=== PATIENT | female | born 1995 | race Caucasian/White ===

== ENCOUNTER 2016-12-31 15:12 | Inpatient (IN) | payer OTHER ==
[~2016-12-31] VITALS: Ht 180.3 cm; Wt 168.0 kg
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
--- NOTE | ~2016-12-31 | PUL ---
PATIENT'S NAME: HARRIET ROD [facility] AGE: 21 Y [address] ROOM: [address] [address] LOCATION: [facility]ICU ADMIT DATE: 12/31/2016 Pulmonary DISCHARGE DATE: 01/04/2017 FAMILY PHYSICIAN: Physician, Unknown ATTENDING PHYSICIAN: Italia Banegas NAME OF PROCEDURE: Overnight Pulse Oximetry DATE OF PROCEDURE: January 03 to January 04, 2017 REASON FOR EXAM: Nocturnal hypoxemia RESULTS: The test was performed on room air. The recording time was 9 hours 6 minutes and 4 seconds, with a total valid sampling time of 9 hours, 5 minutes and 52 seconds. The highest pulse was 120, lowest pulse was77, with a mean pulse of 97. The highest SpO2 was 99%, lowest SpO2 was 71%, with a mean SpO2 of 91.1%. The patient spent 1 hour 29 minutes and 48 seconds with SpO2 less than 89%, representing 16.5% of the total sleep time. The desaturation event index was slightly elevated at 6.4. PHYSICIAN INTERPRETATION: The patient has evidence of significant nocturnal hypoxia and would qualify for supplemental oxygen as per Medicare criteria. However because of her significant nocturnal hypoxia with an elevated desaturation event index a sleep study is suggested at this time. MD ISABEL GAUTHIER/olga /[id number] dtt: 01/07/17 1628 , MADALYN MONTGOMERY dtd: 01/07/17 1440
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
[2016-12-31 15:28] LABS: BASOPHIL # 0.1 K/uL (0.0-0.2); BASOPHIL % 0.3 %; EOSINOPHIL # 0.1 K/uL (0.0-0.5); EOSINOPHIL % 0.4 %; HEMATOCRIT 40.4 % (33.0-46.0); HEMOGLOBIN 14.1 g/dL (11.0-15.0); IMMATURE GRANULOCYTE # 0.1 K/uL (0.0-0.3); IMMATURE GRANULOCYTE % 0.6 %; LYMPHOCYTE # 3.9 K/uL (0.8-4.0); LYMPHOCYTE % 27.1 %; MCH 30.5 pg (27.0-34.0); MCHC 34.9 gm/dL (32.0-36.5); MCV 87.4 fl (83.0-98.0); MONOCYTE % 7.2 %; MPV 9.3 fl (9.4-12.4); NEUTROPHIL # (ANC) 9.3 K/uL (1.8-7.8); NEUTROPHIL % 64.4 %; NRBC % 0 /100WBC (0-0.00); PLATELET COUNT 338 K/uL (150-450); RBC 4.62 M/uL (3.50-5.00); RDW-CV 12.1 % (11.9-14.6); WBC 14.4 K/uL (4.0-11.0)
[2016-12-31 15:37] LABS: INR - (THERAPEUTIC) 0.95 (0.92-1.07); PTT 26 SECONDS (25-32)
[2016-12-31 15:42] LABS: ALBUMIN 3.7 gm/dL (3.5-5.0); BLOOD UREA NITROGEN 10 mg/dL (6-24); CALCIUM 8.6 mg/dL (8.5-10.5); CHLORIDE 107 mMol/L (96-110); CO2 25 mMol/L (22-32); CREATININE 0.9 mg/dL (0.5-1.1); ESTIMATED GFR (MDRD EQUATION) > 60; PHOSPHORUS 2.3 mg/dL (2.5-4.9); SODIUM 139 mMol/L (135-145)
[2016-12-31 16:33] LABS: BILIRUBIN URINE NEGATIVE (NEGATIVE); BLOOD URINE 50 /UL (NEGATIVE); COLOR URINE YELLOW (YELLOW); GLUCOSE URINE NEGATIVE (NEGATIVE); KETONE URINE NEGATIVE (NEGATIVE); LEUKOCYTES URINE NEGATIVE /UL (NEGATIVE); NITRITE URINE NEGATIVE (NEGATIVE); PROTEIN URINE 15 mg/dL (NEGATIVE); TURBIDITY URINE CLEAR (CLEAR); UROBILINOGEN URINE NORMAL (NORMAL)
[2016-12-31 17:13] LABS: BACTERIA URINE FEW (NEGATIVE); WBC URINE NEGATIVE #/HPF (NEGATIVE)
[2017-01-01] MEDS ORDERED: GLUCOPHAGE500 MG PO (01:31)
[2017-01-02 05:27] LABS: BASOPHIL % 0.2 %; EOSINOPHIL # 0.1 K/uL (0.0-0.5); EOSINOPHIL % 1.5 %; HEMATOCRIT 34.7 % (33.0-46.0); HEMOGLOBIN 11.6 g/dL (11.0-15.0); IMMATURE GRANULOCYTE % 0.2 %; LYMPHOCYTE # 3.1 K/uL (0.8-4.0); LYMPHOCYTE % 34.4 %; MCH 30.9 pg (27.0-34.0); MCHC 33.4 gm/dL (32.0-36.5); MONOCYTE # 0.9 K/uL (0.0-1.0); MONOCYTE % 10.4 %; MPV 9.6 fl (9.4-12.4); NEUTROPHIL # (ANC) 4.8 K/uL (1.8-7.8); NEUTROPHIL % 53.3 %; NRBC % 0 /100WBC (0-0.00); RBC 3.76 M/uL (3.50-5.00); RDW-CV 12.3 % (11.9-14.6); WBC 9.1 K/uL (4.0-11.0)
[2017-01-02 05:32] LABS: MCV 92.3 fl (83.0-98.0); PLATELET COUNT 224 K/uL (150-450)
[2017-01-04] MEDS ORDERED: COLACE100 MG PO (10:41)
[2017-01-04] MEDS ORDERED: LOVENOX 4040 MG/0.4 SUB-Q (10:42)
[2017-01-04] MEDS ORDERED: NEURONTIN300 MG PO (10:42)
[2017-01-04] MEDS ORDERED: GLUCOPHAGE500 MG PO (10:43)
[2017-01-04] MEDS ORDERED: PERCOCET [ROXIC1 TAB PO (10:44)
[2017-02-05] MEDS ORDERED: PERCOCET 5-3251 EACH PO (14:33)
[2017-02-05] MEDS ORDERED: CYCLOBENZAPRINE5 MG PO (14:34)
== END 2017-01-04 13:42 | disposition disaster alternative care site (69) | DRG 493 ==
LOC: GACC 15:12 → GICU 18:20
PROVIDERS: Emergency Medicine; Orthopaedic Surgery; ADMIT Internal Medicine
PROC: 0QSG35Z Reposition Right Tibia with External Fixation Device, Percutaneous Approach (ICD-10-PCS; principal; 2016-12-31)
DX: S82.871A Displaced pilon fracture of right tibia, initial encounter for closed fracture (principal); Z68.43 Body mass index [BMI] 50.0-59.9, adult; E28.2 Polycystic ovarian syndrome; E66.01 Morbid (severe) obesity due to excess calories; F43.20 Adjustment disorder, unspecified; S14.3XXA Injury of brachial plexus, initial encounter
CPT/HCPCS: G0390; G0480; J1170; J1650; J2175; J2405; J3010; J3360; J3480; J7030; Q9967

== ENCOUNTER → 2016-12-31 | Outpatient (CLI) | payer OTHER ==
[~2016-12-31] MED LIST: COLACE100 MG PO; CYCLOBENZAPRINE5 MG PO; DILAUDID 2MG(HYD2 MG PO; GLUCOPHAGE500 MG PO; LOVENOX 4040 MG/0.4 SUB-Q; NEURONTIN300 MG PO; NORCO 5-325 TA1 EACH PO; PERCOCET 5-3251 EACH PO; PERCOCET [ROXIC1 TAB PO; TYLENOL EXTRA500 MG PO
== END | disposition disaster alternative care site (69) ==
LOC: GAMB 14:28
DX: M79.601 Pain in right arm (principal); M25.571 Pain in right ankle and joints of right foot; I95.9 Hypotension, unspecified; R58 Hemorrhage, not elsewhere classified; R00.0 Tachycardia, unspecified; Z79.84 Long term (current) use of oral hypoglycemic drugs; Z88.0 Allergy status to penicillin; Z88.1 Allergy status to other antibiotic agents; V49.3XXA Car occupant (driver) (passenger) injured in unspecified nontraffic accident, initial encounter
CPT/HCPCS: A0425; A0427; J3010; J7030

== ENCOUNTER → 2017-01-25 | Outpatient (CLI) | payer OTHER | END | disposition disaster alternative care site (69) | LOC: GRAD 12:00 | DX: S82.301D Unspecified fracture of lower end of right tibia, subsequent encounter for closed fracture with routine healing (principal); S13.8XXD Sprain of joints and ligaments of other parts of neck, subsequent encounter; X58.XXXD Exposure to other specified factors, subsequent encounter ==

== ENCOUNTER → 2017-01-26 | Outpatient (CLI) | payer OTHER ==
--- NOTE | ~2017-01-26 | ENPV ---
Vascular Lower Extremities DVT Study Procedure Demographics Patient Name HARRIET ROD Date of Study 01/26/2017 Patient Number [id number] Gender Female Date of 1995 Age 21 Visit Number [id number] Height Accession Number [id number] Weight Room Number BSA BMI Referring Renaldo Savage MD Interpreting Tad Domingo MD Physician Physician Physician Ordering Physician Renaldo Savage Table Cut Off Saw Operator MD Leak Detector Bryan Whyte BS, RT Conclusions Summary No evidence of deep vein thrombosis or superficial thrombophlebitis in the lower extremities bilaterally . Procedure Type of Study: Veins:Lower Extremities DVT Study, Lower Extremity Right. Indications for Study:Swelling of Limb. Patient Status:Routine. Study Location:Vascular Lab. Technical Quality:Adequate visualization. Velocities are measured in cm/s ; Diameters are measured in cm Right Lower Extremities DVT Study Measurements Right 2D and Doppler Measurements + + + + +------+------+ + !Location !Visualized!Compressibility!Thrombosis!Signal!Reflux!Reflux ! ! ! ! ! ! ! !(sec) ! + + + + +------+------+ + !GSV Thigh !Yes !Yes !None !Phasic!No ! ! + + + + +------+------+ + !Common !Yes !Yes !None !Phasic!No ! ! !Femoral ! ! ! ! ! ! ! + + + + +------+------+ + !Prox !Yes !Yes !None !Phasic!No ! ! !Femoral ! ! ! ! ! ! ! + + + + +------+------+ + !Mid Femoral!Yes !Yes !None !Phasic!No ! ! + + + + +------+------+ + !Dist !Yes !Yes !None !Phasic!No ! ! !Femoral ! ! ! ! ! ! ! + + + + +------+------+ + !Popliteal !Yes !Yes !None !Phasic!No ! ! + + + + +------+------+ + !Gastroc !Yes !Yes !None !Phasic!No ! ! + + + + +------+------+ + !PTV !Yes !Yes !None !Phasic!No ! ! + + + + +------+------+ + !Peroneal !Yes !Yes !None !Phasic!No ! ! + + + + +------+------+ + Left Lower Extremities DVT Study Measurements Left 2D and Doppler Measurements + + + + +------+------+ + !Location !Visualized!Compressibility!Thrombosis!Signal!Reflux!Reflux ! ! ! ! ! ! ! !(sec) ! + + + + +------+------+ + !GSV Thigh !Yes !Yes !None !Phasic!No ! ! + + + + +------+------+ + !Common !Yes !Yes !None !Phasic!No ! ! !Femoral ! ! ! ! ! ! ! + + + + +------+------+ + !Prox !Yes !Yes !None !Phasic!No ! ! !Femoral ! ! ! ! ! ! ! + + + + +------+------+ + !Mid Femoral!Yes !Yes !None !Phasic!No ! ! + + + + +------+------+ + !Dist !Yes !Yes !None !Phasic!No ! ! !Femoral ! ! ! ! ! ! ! + + + + +------+------+ + !Popliteal !Yes !Yes !None !Phasic!No ! ! + + + + +------+------+ + !Gastroc !Yes !Yes !None !Phasic!No ! ! + + + + +------+------+ + !PTV !Yes !Yes !None !Phasic!No ! ! + + + + +------+------+ + !Peroneal !Yes !Yes !None !Phasic!No ! ! + + + + +------+------+ + Signature dtt: MILLIE SOUZA dtd: 01/26/17 [facility] Physician [employer]
== END | disposition disaster alternative care site (69) ==
LOC: GCAR 09:59 → GLAB 10:00 → GCAR 10:00 → GLAB 01-28 → GCAR 01-28
DX: L08.9 Local infection of the skin and subcutaneous tissue, unspecified (principal)

== ENCOUNTER → 2017-02-01 | Outpatient (CLI) | payer OTHER ==
[2017-02-01 08:58] LABS: BASOPHIL % 0.4 %; EOSINOPHIL # 0.1 K/uL (0.0-0.5); EOSINOPHIL % 1.5 %; HEMATOCRIT 40.8 % (33.0-46.0); HEMOGLOBIN 13.9 g/dL (11.0-15.0); IMMATURE GRANULOCYTE % 0.4 %; LYMPHOCYTE # 2.3 K/uL (0.8-4.0); MCH 30.8 pg (27.0-34.0); MCHC 34.1 gm/dL (32.0-36.5); MCV 90.3 fl (83.0-98.0); MONOCYTE # 0.6 K/uL (0.0-1.0); MONOCYTE % 9.2 %; MPV 9.2 fl (9.4-12.4); NEUTROPHIL # (ANC) 3.7 K/uL (1.8-7.8); NEUTROPHIL % 54.5 %; NRBC % 0 /100WBC (0-0.00); PLATELET COUNT 267 K/uL (150-450); RBC 4.52 M/uL (3.50-5.00); WBC 6.9 K/uL (4.0-11.0)
== END | disposition disaster alternative care site (69) ==
LOC: GLAB 08:34
PROVIDERS: Orthopaedic Surgery
DX: B99.9 Unspecified infectious disease (principal)

== ENCOUNTER 2017-02-10 11:28 | Inpatient (IN) | payer OTHER ==
[~2017-02-10] VITALS: Ht 180.3 cm; Wt 157.5 kg
--- NOTE | ~2017-02-10 | OR ---
PATIENT'S NAME: HARRIET CH[facility] AGE: 21 Y [address] ROOM: [address] [address] LOCATION: [facility] ADMIT DATE: 02/10/2017 OR/Procedure Report DISCHARGE DATE: FAMILY PHYSICIAN: Tashi Hoyt ATTENDING PHYSICIAN: Cornell Patel SURGEON: Cornell Patel MD NIGHT COURT MAGISTRATE: DATE OF PROCEDURE: 02/10/2017 DIAGNOSES: 1. Right ankle pilon fracture and dislocation. 2. Chondromalacia of the talus. PROCEDURE: 1. Open reduction and internal fixation of the pilon fracture. 2. Bone graft with allograft 30 mL. 3. Chondroplasty of the talus. 4. Removal of external fixator. 5. Application of a posterior splint. ANESTHESIA: General. INDICATION: Ms. Chi is 1 month status post a pilon right ankle and dislocation, damage control surgery with an external fixator. Swelling has been a problem, but has improved. At this time, open reduction and internal fixation is indicated. Risks, benefits, and alternatives have all been discussed. DESCRIPTION OF PROCEDURE: Ms. Chi was taken to the operating room. Prophylactic antibiotics. General anesthetic via endotracheal tube. Placed on the operating room table in a supine position. Tourniquet high about the right thigh. The right lower extremity prepared with DuraPrep and draped sterilely. The fixator was prepped as well. The lateral fixating bar and the fixator was removed. Femoral distractor was placed distally onto the calcaneal pin and proximally a new pin into the tibia in the coronal plane. Under fluoroscopic control, anatomic reduction was achieved through ligamentotaxis. Talus was well reduced. Tourniquet was inflated to 350 mmHg. Incision from 7 cm proximal to the ankle distally down to the base of the fourth metatarsal. Extensor retinaculum was released. Extensor tendons and neurovascular structures retracted medially. The anterior surface of the tibia and the joint was visualized over to the fracture on the medial side. Very carefully, the fracture fragments were reduced. Largely had healed. Had to use an osteotome to cut the articular fragments loose. Some were displaced more than 180 degrees. The articular surface was pieced together. 30 mL of cancellous allograft was packed into the wound to support the reduced PATIENT'S NAME: HARRIET [facility] AGE: 21 Y [address] ROOM: [id number] [place], [place] [address] LOCATION: [facility] ADMIT DATE: 02/10/2017 OR/Procedure Report DISCHARGE DATE: FAMILY PHYSICIAN: Tashi Hoyt ATTENDING PHYSICIAN: Cornell Patel articular cartilage of the tibia. The lateral malleolus was reduced and the M2M Solution ball clamp was used to keep compressed. The talus was examined. There was a full depth chondromalacia measuring 1 cm x 1.5 cm. This was cleaned. Bone pick was used for chondroplasty. A 3 hole anterolateral Synthes plate was placed. The first 3.5 cortical lag screw was placed through the oval hole to allow adjustment of the plate. Fluoroscope was used for a good distal position for the best fixation with locking screws of the multiple fragments. Four locking screws were placed. Two additional screws were placed proximally in the shaft. Then, the last 2 distal locking screws were placed obliquely. A 6 hole semitubular plate was contoured with flattening of the distal 2 holes. The most distal hole was cut to have 2 spikes that were bent to 90 degrees. This was driven into the bone. Screws were placed reducing the large medial fragment and stabilizing. The wounds were all irrigated. Two tourniquet times were used for this procedure. First 110 minutes and the second 150 minutes. A down tourniquet was done between the 2 tourniquet times and the tourniquet was first deflated. The patient became hypotensive, had pupils dilated, rapidly stabilized, oxygenation was 100% throughout, but there probably was a period of hypotension. The wounds were all irrigated. The external fixator was removed. Fluoroscopic images were saved. Extensor retinaculum was closed with #1 Vicryl. Subcutaneous tissues closed with 0 Vicryl, followed by subcuticular vertical mattress sutures. Xeroform was placed, Kerlix, cotton batting, and then a Hdz splint. Foot was in a plantigrade position. Procedure was done without complication. Estimated blood loss from the procedure was minimal. To recovery room in stable condition. In the recovery room, vital signs were stable. Neurologically intact. Mentation intact. Pupils were equal, reacted. The dilation quickly resolved. Hospitalist consult ordered to make sure no medical condition was missed. We will plan to keep on the Hdz splint for 3 weeks and then to begin working on range of motion to restore the cartilage. The patient and family understands some degree of traumatic osteoarthritis is expected. CORNELL PATEL MD DPM/jamin /[id number] d: 02/11/17 0426 t: 02/13/17 0829, OPERATIVE SUMMARY
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
[~2017-02-10 11:28] MED LIST changes: -DILAUDID 2MG(HYD2 MG PO; -NORCO 5-325 TA1 EACH PO; -TYLENOL EXTRA500 MG PO
--- NOTE | 2017-02-11 04:39 | NUR ---
Significant Event: Alert and oriented x3. Tachycardic with HR's in 100's-110's. Otherwise, VSS. Returned from OR at 2305. Splint is CDI. Elevated. Ice applied. Popliteal block. Pt can feel toes but is unable to wiggle toes. IV fluids increased to 150 ml/hr. Dr. Randall saw patient. Pupils dilated. Dr. Randall to floor to assess. PERRLA. To be NWB RLE. Pt has been resting well. Sleepy. Dilaudid 0.2 mg IVP given X1 at 0100. Percocet 1 tab given at 2335. Rudy 10/325 given x2 in PACU 2149 and 2239. Rates pain at 7/10, states tolerable. No void yet. Follow up:
--- NOTE | 2017-02-11 15:28 | NUR ---
SPOKE TO PATIENT REGARDING CM AND OUR ROLE. PATIENT REPORTS THAT SHE HAS ALL HER DME. SHE IS PLANNING ON GOING BACK TO HER GRAND PARENTS AT [place], [place]. PATIENT DOES NOT ANTICIPATE ANY DISCHARGE NEEDS AT THIS TIME.
--- NOTE | 2017-02-11 18:58 | NUR ---
Significant Event: Pivot transfers with SBA and walker. Maintians NWB to R) leg. Dressing with marked drainage. Refuses ice at this time. C/O pain increase at 1700, Dilaudid 0.2mg IVP last at 1801, [place] 10/325 last at 1801, Valium 5mg last at 1445. CSM-States normal sensation, unable to wiggle toes. Voids per bedside commode. Follow up:
--- NOTE | 2017-02-12 04:22 | NUR ---
Shift Summary: Patient has a low pain tolerance. Becomes very emotional and tearful easily when her pain esculates. Cannot move her right toes, but states they feel normal. Plan is for patient to discharge home today.
--- NOTE | 2017-02-12 17:06 | NUR ---
Significant Event: Up to recliner with one assist and walker. Maintains NWB to R) foot. Dressing with old drainage. Ice to side of ankle. Dilaudid 2mg last at 1525 and Valium 5mg last at 1305. Elevated temp of 100.5 this am, encourage incentive spirometer, temp of 98.4 upon recheck. Follow up:
--- NOTE | 2017-02-13 04:47 | NUR ---
Significant Event: PAIENT ALERT AND ORIENTED X 3. VSS. TAKING PO AND VOIDING WITHOUT DIFFICULTY. UP WITH 1 ASSIST/GB/AND WALKER. TO COMMODE ONLY. SL TO RIGHT POST FA PATENT. PAIN CONTROLLED WITH DILAUDID LAST AT 347, VALIUM AT 347 AND IVP DILAUDID LAST AT 2056. RIGHT LEG ELEVATED AND ICE ON AT ALL SHIFT. PLEASANT AND COOPERTIVE WITH CARES. CHENG WRAP/SPLINT DRESSING C/D/I. CONTINUES TO HAVE DULLNESS TO TOES AND UNABLE TO WIGGLE TOES. CAP REFILL LESS THAN 3 SECONDS AND TOES ARE PINK AND WARM. PLANS HOME TODAY. Follow up:
[2017-02-13] MEDS ORDERED: DILAUDID 2MG(HYD2 MG PO (14:37)
[2017-02-13] MEDS ORDERED: NORCO 5-325 TA1 EACH PO (14:38)
[2017-02-13] MEDS ORDERED: TYLENOL EXTRA500 MG PO (14:40)
--- NOTE | 2017-02-13 16:06 | NUR ---
Patient was AOx3. VSS. Patient had normal sensation in toes but could not wiggle them. Dilaudid given for pain. Dr. Macario put on new cast at 1400. Patient was wheeled out to [facility] for dismissal home with family at 1535.
== END 2017-02-13 15:41 | disposition disaster alternative care site (69) | DRG 493 ==
LOC: G3N 11:28 → GSDC 11:28 → G3N 23:27 → GSDC 23:28 → G3N 02-12 10:20
PROVIDERS: ADMIT Orthopaedic Surgery
PROC: 0SPFX5Z Removal of External Fixation Device from Right Ankle Joint, External Approach (ICD-10-PCS; principal; 2017-02-10)
PROC: 0QSG04Z Reposition Right Tibia with Internal Fixation Device, Open Approach (ICD-10-PCS; principal; 2017-02-10)
PROC: 0SQF0ZZ Repair Right Ankle Joint, Open Approach (ICD-10-PCS; principal; 2017-02-10)
DX: S82.891A Other fracture of right lower leg, initial encounter for closed fracture (principal); Z68.42 Body mass index [BMI] 45.0-49.9, adult; M94.271 Chondromalacia, right ankle and joints of right foot; Z87.891 Personal history of nicotine dependence; E66.01 Morbid (severe) obesity due to excess calories; V89.2XXA Person injured in unspecified motor-vehicle accident, traffic, initial encounter
CPT/HCPCS: C1713; G0378; J1100; J1170; J1650; J2001; J2250; J2405; J2550; J3010; J3360; J7030; J7120

== ENCOUNTER → 2017-03-09 | Outpatient (CLI) | payer SELFPAY ==
[~2017-03-09] MED LIST changes: +DILAUDID 2MG(HYD2 MG PO; +NORCO 5-325 TA1 EACH PO; +TYLENOL EXTRA500 MG PO
== END | disposition disaster alternative care site (69) ==
LOC: GRAD 12:00
DX: S82.891D Other fracture of right lower leg, subsequent encounter for closed fracture with routine healing (principal); X58.XXXD Exposure to other specified factors, subsequent encounter